=== PATIENT | male | born 1985 | race African-American/Black ===

== ENCOUNTER 2023-02-08 09:37 | Emergency (ER) | payer SELFPAY ==
[2023-02-08 10:07] VITALS: TEMP 97.9; BMI 39.2
[2023-02-08] MEDS ORDERED: KETOROLAC TROMETHAMINE 15 MG/ML VIAL IM ONE (10:13)
[2023-02-08] MEDS ORDERED: AMOX TR/POT CLAV 875MG/125MG TABLETS (FP) PO ONE (10:14)
[2023-02-08] MEDS ORDERED: KETOROLAC TROMETHAMINE 30 MG/1 ML VIAL ONE (10:26)
[2023-02-08] MEDS ORDERED: AMOX TR/POT CLAV 875MG/125MG TABLETS (FP) ONE (10:26)
[2023-02-08 10:58] VITALS: BP 138/85; PULSE 60; RESP 19
== END 2023-02-08 11:09 | disposition home or self-care (01) ==
LOC: JERFT 09:37 → JER 09:37 → JERFT 11:09
PROC: 3E0233Z Introduction of Anti-inflammatory into Muscle, Percutaneous Approach (ICD-10-PCS; principal; 2023-02-08)
DX: K04.7 Periapical abscess without sinus (principal); K08.89 Other specified disorders of teeth and supporting structures
CPT/HCPCS: 99284-25

== ENCOUNTER 2023-12-04 09:40 | Emergency (ER) | payer SELFPAY ==
[2023-12-04 09:48] VITALS: BP 136/79; PULSE 82; RESP 20; TEMP 97.8; BMI 31.1
[2023-12-04] MEDS ORDERED: KETOROLAC TROMETHAMINE 30 MG/1 ML VIAL ONE (10:11)
[2023-12-04] MEDS ORDERED: METOCLOPRAMIDE HCL INJECTION 10 MG/2 ML VIAL ONE (10:11)
[2023-12-04 10:35] LABS: BASO % 0.6 % (0-2.0); HEMATOCRIT 46.8 % (35.4-49); LYMPH % 37.9 % (8-40); MCH 26.8 pg (25.7-33.7); MEAN CELL VOLUME 83.8 fl (80-96); MEAN PLT VOLUME 8.3 fl (7.5-11.1); MONO % 8.1 % (3.8-10.2); NEUT % 50.4 % (42.8-82.8); PLATELET COUNT 210 10^3/uL (134-434); RBC 5.59 M/mm3 (4.00-5.60); RDW 14.3 % (11.9-15.9); WHITE BLOOD COUNT 6.7 K/mm3 (4.0-10.0)
[2023-12-04] MEDS: SODIUM CHLORIDE 1,000 ML IV STA (10:37)
[2023-12-04] MEDS: METOCLOPRAMIDE HCL INJECTION 10 MG/2 ML VIAL IVPUSH ONE (10:37)
[2023-12-04] MEDS: KETOROLAC TROMETHAMINE 30 MG/1 ML VIAL IVPUSH ONE (10:37)
[2023-12-04] MEDS: KETOROLAC TROMETHAMINE 30 MG/1 ML VIAL IM ONE (10:38)
[2023-12-04 10:43] LABS: INR 0.94 (0.83-1.09); PROTHROMBIN TIME (PATIENT) 10.6 SEC (9.7-13.0)
[2023-12-04 10:46] LABS: ACTIVATED PTT 32.4 SECONDS (25.2-36.5)
[2023-12-04 10:55] LABS: POTASSIUM 3.7 mmol/L (3.5-5.1)
[2023-12-04 10:57] LABS: CALCIUM 8.8 mg/dL (8.5-10.1)
[2023-12-04 10:58] LABS: ALBUMIN 3.7 g/dl (3.4-5.0); BLOOD UREA NITROGEN 16.7 mg/dL (7-18)
[2023-12-04 11:01] LABS: CREATININE 1.1 mg/dL (0.55-1.3)
[2023-12-04 11:03] LABS: TOT PROT 7.3 g/dl (6.4-8.2)
== END 2023-12-04 13:05 | disposition home or self-care (01) ==
LOC: JER 09:40
PROC: 3E0333Z Introduction of Anti-inflammatory into Peripheral Vein, Percutaneous Approach (ICD-10-PCS; principal; 2023-12-04)
PROC: 3E033GC Introduction of Other Therapeutic Substance into Peripheral Vein, Percutaneous Approach (ICD-10-PCS; 2023-12-04)
PROC: 3E0337Z Introduction of Electrolytic and Water Balance Substance into Peripheral Vein, Percutaneous Approach (ICD-10-PCS; 2023-12-04)
DX: R51.9 Headache, unspecified (principal); H53.149 Visual discomfort, unspecified; H04.209 Unspecified epiphora, unspecified side
CPT/HCPCS: 36415; 70450-TC; 80053; 85025; 85610; 85730; 99284-25